=== PATIENT | female | born 1995 | race Caucasian/White ===

== ENCOUNTER 2019-05-16 08:41 | Emergency (ER) | payer OTHER ==
[~2019-05-16] VITALS: Ht 157.5 cm; Wt 63.5 kg
--- NOTE | 2019-05-16 08:58 | NUR ---
ED Nurse Note: PT WA;KE DIN DUE OT VOMITING X 3 DAYS. PT ADMITS SHE IS HAVING A RELAPSE FOR DRUGS. PT TOOK FENTANYL THIS MORNING AND MARIJUANA YESTERDAY. ALOS STATES THAT SHE IS CONSTIPATED, LAST BM 3 DAYS AGO. AAO X4, AMBULATORY, ABDOMEN SOFT AND BOWEL SOUNDS HEARD IN ALL QUADRANTS.
[2019-05-16 09:00] VITALS: BP 122/80
--- NOTE | 2019-05-16 09:12 | Emergency Room Report ---
History of Present Illness General Chief Complaint: Vomiting Source: Patient Present Illness HPI Patient is a 23-year-old female presented after increased nausea and vomiting for several days. Patient reports having recently used fentanyl as well as methamphetamine. She reports having increased anxiety as well as vomiting. Patient previously been sober and then relapsed. She states that she has been using for the past 5 days. She reports having previous episodes of vomiting every time she would use opiates in the past. She denies any fever. She denies any diarrhea she states that she has been constipated. Patient states that last use was today. She denies being . Allergies: Coded Allergies: No Known Allergies (Unverified , 05/16/19) Patient History Past Medical History: see triage record Last Menstrual Period: 05/08/19 Reviewed Nursing Documentation: PMH: Agreed; PSxH: Agreed Nursing Documentation-PMH Past Medical History: No History, Except For Review of Systems All Other Systems: negative except mentioned in HPI Physical Exam Vital Signs Date Time Temp Pulse Resp B/P (MAP) Pulse Ox O2 Delivery O2 Flow Rate FiO2 05/16/19 08:48 98.1 72 18 118/85 (96) 98 Room Air Sp02 EP Interpretation: reviewed, normal General Appearance: normal inspection, well appearing, no apparent distress, alert, GCS 15, non-toxic Head: atraumatic ENT: normal ENT inspection, hearing grossly normal, normal voice, other - nasal vesicular lesion Neck: normal inspection, full range of motion, supple, no bony tend Respiratory: normal inspection, lungs clear, normal breath sounds, no respiratory distress, no retraction, no wheezing Cardiovascular #1: regular rate, rhythm, no edema Gastrointestinal: normal inspection, normal bowel sounds, non tender, soft, no guarding, no hernia Genitourinary: no CVA tenderness Musculoskeletal: normal inspection, back normal, normal range of motion Neurologic: normal inspection, alert, responsive, speech normal Psychiatric: normal inspection, judgement/insight normal, mood/affect normal Medical Decision Making Diagnostic Impression: Primary Impression: Vomiting Additional Impression: Opiate abuse, episodic ER Course Patient presented for nausea and vomiting. Differential diagnosis include was not limited to gastroneuritis, dehydration, bowel obstruction among others. Laboratory testing was ordered due to patient's reported multiple episodes of vomiting. Patient was noted to have reported similar symptoms with opiate use in the past. Patient was given IV fluids as well as nausea medications. Patient was noted to have some improvement. She did not show any evidence of peritonitis. test was negative. She appears to be stable for discharge. Patient was advised to follow up with primary care physician. Patient to return if worse or any concerns. Labs Test 05/16/19 09:00 White Blood Count 6.2 K/UL (4.8-10.8) Red Blood Count 4.90 M/UL (4.20-5.40) Hemoglobin 14.7 G/DL (12.0-16.0) Hematocrit 44.3 % (37.0-47.0) Mean Corpuscular Volume 90 FL (80-99) Mean Corpuscular Hemoglobin 30.0 PG (27.0-31.0) Mean Corpuscular Hemoglobin Concent 33.2 G/DL (32.0-36.0) Red Cell Distribution Width 11.3 % (11.6-14.8) Platelet Count 266 K/UL (150-450) Mean Platelet Volume 7.2 FL (6.5-10.1) Neutrophils (%) (Auto) 45.8 % (45.0-75.0) Lymphocytes (%) (Auto) 37.7 % (20.0-45.0) Monocytes (%) (Auto) 13.1 % (1.0-10.0) Eosinophils (%) (Auto) 2.3 % (0.0-3.0) Basophils (%) (Auto) 1.2 % (0.0-2.0) Urine Color Brown Urine Appearance Slightly cloudy Urine pH 5 (4.5-8.0) Urine Specific [place] 1.025 (1.005-1.035) Urine Protein 2+ (NEGATIVE) Urine Glucose (UA) Negative (NEGATIVE) Urine Ketones 2+ (NEGATIVE) Urine Blood 4+ (NEGATIVE) Urine Nitrite Negative (NEGATIVE) Urine Bilirubin 1+ (NEGATIVE) Urine Ictotest Negative (NEGATIVE) Urine Urobilinogen 1 MG/DL (0.0-1.0) Urine Leukocyte Esterase 1+ (NEGATIVE) Urine RBC 2-4 /HPF (0 - 2) Urine WBC 0-2 /HPF (0 - 2) Urine Squamous Epithelial Cells Few /LPF (NONE/OCC) Urine Calcium Oxalate Crystals Few /LPF (NONE) Urine Bacteria Few /HPF (NONE) Urine Hyaline Casts 5-10 /LPF (NONE) Urine Fine Granular Casts 2-4 /LPF (NONE) Urine Mucus Moderate /LPF (NONE/OCC) Urine HCG, Qualitative Negative (NEGATIVE) Sodium Level 140 MMOL/L (136-145) Potassium Level 3.3 MMOL/L (3.5-5.1) Chloride Level 100 MMOL/L (98-107) Carbon Dioxide Level 34 MMOL/L (21-32) Anion Gap 6 mmol/L (5-15) Blood Urea Nitrogen 10 mg/dL (7-18) Creatinine 0.7 MG/DL (0.55-1.30) Estimat Glomerular Filtration Rate > 60 mL/min (>60) Glucose Level 98 MG/DL (74-106) Calcium Level 9.6 MG/DL (8.5-10.1) Total Bilirubin 0.5 MG/DL (0.2-1.0) Aspartate Amino Transf (AST/SGOT) 25 U/L (15-37) Alanine Aminotransferase (ALT/SGPT) 28 U/L (12-78) Alkaline Phosphatase 58 U/L (46-116) Total Protein 7.8 G/DL (6.4-8.2) Albumin 4.1 G/DL (3.4-5.0) Globulin 3.7 g/dL Albumin/Globulin Ratio 1.1 (1.0-2.7) Lipase 68 U/L (73-393) Last Vital Signs Date Time Temp Pulse Resp B/P (MAP) Pulse Ox O2 Delivery O2 Flow Rate FiO2 05/16/19 08:48 98.1 72 18 118/85 (96) 98 Room Air Status: improved Disposition: HOME, SELF-CARE Scripts Cephalexin* (KEFLEX*) 500 Mg Capsule 500 MG ORAL EVERY 6 HOURS, #28 CAP Prov: Gareth Rosa MD 05/16/19 Ondansetron Odt* (ZOFRAN ODT*) 4 Mg Tab.rapdis 4 MG BC EVERY 8 HOURS, #10 TAB 0 Refills Prov: Gareth Rosa MD 05/16/19 Gareth Rosa MD May 16, 2019 09:12
--- NOTE | 2019-05-16 09:15 | NUR ---
ED Nurse Note: BLOOD/URINE SENT.
[2019-05-16 09:21] LABS: APPEARANCE,URINE SLIGHTLY CLOUDY; BILIRUBIN, URINE 1+ (NEGATIVE); COLOR,URINE BROWN; GLUCOSE, URINE (UA) NEGATIVE (NEGATIVE); KETONES,URINE 2+ (NEGATIVE); LEUKOCYTE ESTERASE ,URINE 1+ (NEGATIVE); NITRITE,URINE NEGATIVE (NEGATIVE); PH,URINE 5 (4.5-8.0); PROTEIN,URINE 2+ (NEGATIVE); UROBILINOGEN,URINE 1 MG/DL (0.0-1.0)
[2019-05-16 09:22] LABS: BASOPHILS % (AUTO) 1.2 % (0.0-2.0); EOSINOPHILS % (AUTO) 2.3 % (0.0-3.0); HEMATOCRIT 44.3 % (37.0-47.0); HEMOGLOBIN 14.7 G/DL (12.0-16.0); LYMPHOCYTES % (AUTO) 37.7 % (20.0-45.0); MEAN CORPUSCULAR VOLUME 90 FL (80-99); MONOCYTES % (AUTO) 13.1 % (1.0-10.0); NEUTROPHILS % (AUTO) 45.8 % (45.0-75.0); PLATELET COUNT 266 K/UL (150-450); RED CELL DISTRIBUTION WIDTH 11.3 % (11.6-14.8); WHITE BLOOD COUNT 6.2 K/UL (4.8-10.8)
[2019-05-16 09:31] LABS: ANION GAP 6 mmol/L (5-15); BLOOD UREA NITROGEN 10 mg/dL (7-18); CALCIUM 9.6 MG/DL (8.5-10.1); CARBON DIOXIDE 34 MMOL/L (21-32); CHLORIDE 100 MMOL/L (98-107); CREATININE 0.7 MG/DL (0.55-1.30); POTASSIUM 3.3 MMOL/L (3.5-5.1); SODIUM 140 MMOL/L (136-145)
[2019-05-16 09:35] LABS: ALANINE AMINOTRANSFERASE 28 U/L (12-78); ALBUMIN 4.1 G/DL (3.4-5.0); ALBUMIN/GLOBULIN RATIO 1.1 (1.0-2.7); ALKALINE PHOSPHATASE 58 U/L (46-116); ASPARTATE AMINO TRANSFERASE 25 U/L (15-37); BILIRUBIN,TOTAL 0.5 MG/DL (0.2-1.0)
[2019-05-16] MEDS ORDERED: cefTRIAXone 1 GM in NS 55 ML IVPB ONE (10:15)
[2019-05-16] MEDS ORDERED: CEPHALEXIN500 MG ORAL (10:16)
[2019-05-16] MEDS ORDERED: ONDANSETRON ODT4 MG BC (10:16)
[2019-05-16] MEDS ORDERED: NKM (10:19)
[2019-05-16 11:02] VITALS: BP 125/77
[2019-05-16 11:31] VITALS: BP 125/77
--- NOTE | 2019-05-16 11:31 | NUR ---
ER DISCHARGE NOTE: Patient is cleared to be discharged per ERMD, pt is aox4, on room air, with stable vital signs. pt was given dc and prescription instructions, pt was able to verbalize understanding, pt id band and iv site removed without complications. pt is able to ambulate with steady gait. pt took all belongings and left with her girlfriend.
== END 2019-05-16 11:31 | disposition home or self-care (01) ==
LOC: EMR 09:11
DX: R11.10 Vomiting, unspecified (principal); F11.10 Opioid abuse, uncomplicated; K59.00 Constipation, unspecified
CPT/HCPCS: 36415; 80053; 81003; 81025; 83690; 85025; 96361; 96365; 96375; 99284; J0696; J2405

== ENCOUNTER 2019-05-18 01:48 | Emergency (ER) | payer OTHER ==
[2019-05-18] VITALS (10 sets, daily range): BP systolic 103–119; BP diastolic 60–86
[~2019-05-18] VITALS: Ht 167.6 cm; Wt 68.0 kg
[~2019-05-18 01:48] MED LIST: CEPHALEXIN500 MG ORAL; NKM; ONDANSETRON ODT4 MG BC
--- NOTE | 2019-05-18 01:50 | NUR ---
ED Nurse Note: Pt BIBA from home, c/o s/p od on fentanyl drug, pt was given narcan D[employer]ER [employer] CHOREOGR[employer]HER and awakened, pt is very combative and restless, agitated, yelling and screaming, requiring about 5 staff to control pt, pt also spitting at everyone, hallucinating and growling, pt constantly moving, unable to obtain triage v/s or any v/s, md aware and at bedside, will medicate pt to calm then get v/s and labs per md, pt placed in restraints for safety, will continue to closely monitor.
[2019-05-18] MEDS ORDERED: DiphenhydrAMINE 50mg/ml Inj IM ONE (02:00)
[2019-05-18] MEDS ORDERED: LORazepam Inj 2mg/ml 1ml IM ONE ×2 (02:00→03:00)
[2019-05-18] MEDS ORDERED: Haloperidol 5mg/ml Inj IM ONE ×2 (02:00→03:00)
--- NOTE | 2019-05-18 03:30 | NUR ---
ED Nurse Note: Pt medicated as ordered, meds not effective, pt continues to elicit extreme aggressive behaviors with yelling and shouting and growling, pt is combative, pinching and scratching and kicking, pt is constantly moving, requiring very frequent attempts to re-orient and re-place restraints as pt released self x 2 from right arm, unable still to obtain v/s or blood, md is aware, pt re-medicated second time, waiting for med effectiveness to re-attempt labs and v/s, pt remains on continuous and every 15 minutes assessing.
[2019-05-18 04:11] LABS: BASOPHILS % (AUTO) 0.8 % (0.0-2.0); EOSINOPHILS % (AUTO) 0.6 % (0.0-3.0); HEMATOCRIT 43.6 % (37.0-47.0); HEMOGLOBIN 15.1 G/DL (12.0-16.0); LYMPHOCYTES % (AUTO) 16.4 % (20.0-45.0); MEAN CORPUSCULAR VOLUME 88 FL (80-99); MONOCYTES % (AUTO) 10.1 % (1.0-10.0); NEUTROPHILS % (AUTO) 72.1 % (45.0-75.0); PLATELET COUNT 306 K/UL (150-450); RED BLOOD COUNT 4.97 M/UL (4.20-5.40); RED CELL DISTRIBUTION WIDTH 11.2 % (11.6-14.8); WHITE BLOOD COUNT 13.1 K/UL (4.8-10.8)
[2019-05-18 04:16] LABS: ANION GAP 14 mmol/L (5-15); BLOOD UREA NITROGEN 12 mg/dL (7-18); CALCIUM 10.1 MG/DL (8.5-10.1); CARBON DIOXIDE 25 MMOL/L (21-32); CHLORIDE 102 MMOL/L (98-107); POTASSIUM 3.4 MMOL/L (3.5-5.1); SODIUM 141 MMOL/L (136-145)
[2019-05-18 04:20] LABS: ALANINE AMINOTRANSFERASE 29 U/L (12-78); ALBUMIN 4.4 G/DL (3.4-5.0); ALBUMIN/GLOBULIN RATIO 1.3 (1.0-2.7); ALKALINE PHOSPHATASE 61 U/L (46-116); ASPARTATE AMINO TRANSFERASE 38 U/L (15-37); BILIRUBIN,TOTAL 0.6 MG/DL (0.2-1.0)
--- NOTE | 2019-05-18 04:30 | NUR ---
ER Nurse Note: Pt continues to be in four point hard restraints; not ready to be removed. Pt thrashing in bed. Unable to assess mental status, agitated, restless. Skin assessed; no skin breakdown. Unable to get v/s after several attempts; temp 99.1F axillary. All safety measures met; will continue to montior.
--- NOTE | 2019-05-18 06:10 | NUR ---
ER Nurse Note: Restraint order renewed. Skin intact. Pt continues to be AMS and DTS. VSS, stable. Friend at bedside. All safety measures met; will continue to monitor.
--- NOTE | 2019-05-18 07:22 | NUR ---
ER Nurse Note: Urine sent collected and sent; awaiting results. Pt calm, hard restraints removed and documented. Pt asleep, VSS, no signs of distress. Report given to GINA Pinzon for continuty of care.
[2019-05-18 07:24] LABS: APPEARANCE,URINE CLEAR; BILIRUBIN, URINE NEGATIVE (NEGATIVE); GLUCOSE, URINE (UA) NEGATIVE (NEGATIVE); KETONES,URINE 4+ (NEGATIVE); LEUKOCYTE ESTERASE ,URINE NEGATIVE (NEGATIVE); NITRITE,URINE NEGATIVE (NEGATIVE); PH,URINE 6 (4.5-8.0); PROTEIN,URINE 1+ (NEGATIVE); UROBILINOGEN,URINE 1 MG/DL (0.0-1.0)
--- NOTE | 2019-05-18 07:25 | NUR ---
ED Nurse Note: Pt sleeping in bed comfortably at this time. No sign of distress. Partner at bedside. IV 20G on R forearm was established prior to AM shift and flushed well, using for future medications.
[2019-05-18 07:46] LABS: COLOR,URINE YELLOW
--- NOTE | 2019-05-18 08:07 | Emergency Room Report ---
Physical Exam Vital Signs Date Time Temp Pulse Resp B/P (MAP) Pulse Ox O2 Delivery O2 Flow Rate FiO2 05/18/19 01:48 100.2 114 22 105/67 (80) 100 Room Air Sp02 EP Interpretation: reviewed, normal General Appearance: non-toxic, other - Sleeping Head: normocephalic, atraumatic Eyes: bilateral eye PERRL, bilateral eye EOMI ENT: uvula midline, dry mucus membranes Neck: supple, thyroid normal, supple/symm/no masses Respiratory: lungs clear, no respiratory distress, no retraction, no accessory muscle use Cardiovascular #1: normal peripheral pulses, regular rate, rhythm, no edema, no gallop, no murmur Gastrointestinal: non tender, soft, no guarding, no rebound Musculoskeletal: normal inspection Neurologic: responsive Skin: no rash, warm/dry Medical Decision Making Diagnostic Impression: Primary Impression: Drug overdose ER Course 23-year-old female history of polysubstance abuse presents with overdose on GHB and fentanyl, patient is sleeping, responsive with sluggish pupils, patient wakes up when aroused, she becomes a little combative, requiring restraints, she is calm down with over 5 hours of observation significantly improved, we will continue to observe, until patient jessica completely. Patient is given 2 L of NS, labs are reviewed, with marijuana in the urine as well as amphetamines. Reevaluation 9:54 AM, patient is walking, ambulatory, back to baseline, will disposition patient home with return precautions will be accompanied by her partner at home Laboratory Tests Test 05/18/19 03:53 05/18/19 07:10 White Blood Count 13.1 K/UL (4.8-10.8) H Red Blood Count 4.97 M/UL (4.20-5.40) Hemoglobin 15.1 G/DL (12.0-16.0) Hematocrit 43.6 % (37.0-47.0) Mean Corpuscular Volume 88 FL (80-99) Mean Corpuscular Hemoglobin 30.4 PG (27.0-31.0) Mean Corpuscular Hemoglobin Concent 34.7 G/DL (32.0-36.0) Red Cell Distribution Width 11.2 % (11.6-14.8) L Platelet Count 306 K/UL (150-450) Mean Platelet Volume 7.5 FL (6.5-10.1) Neutrophils (%) (Auto) 72.1 % (45.0-75.0) Lymphocytes (%) (Auto) 16.4 % (20.0-45.0) L Monocytes (%) (Auto) 10.1 % (1.0-10.0) H Eosinophils (%) (Auto) 0.6 % (0.0-3.0) Basophils (%) (Auto) 0.8 % (0.0-2.0) Sodium Level 141 MMOL/L (136-145) Potassium Level 3.4 MMOL/L (3.5-5.1) L Chloride Level 102 MMOL/L (98-107) Carbon Dioxide Level 25 MMOL/L (21-32) Anion Gap 14 mmol/L (5-15) Blood Urea Nitrogen 12 mg/dL (7-18) Creatinine 1.0 MG/DL (0.55-1.30) Estimate Glomerular Filtration Rate > 60 mL/min (>60) Glucose Level 109 MG/DL (74-106) H Calcium Level 10.1 MG/DL (8.5-10.1) Total Bilirubin 0.6 MG/DL (0.2-1.0) Aspartate Amino Transferase (AST) 38 U/L (15-37) H Alanine Aminotransferase (ALT) 29 U/L (12-78) Alkaline Phosphatase 61 U/L (46-116) Total Protein 7.9 G/DL (6.4-8.2) Albumin 4.4 G/DL (3.4-5.0) Globulin 3.5 g/dL Albumin/Globulin Ratio 1.3 (1.0-2.7) Salicylates Level 1.5 ug/mL (2.8-20) L Acetaminophen Level < 2 MCG/ML (10-30) L Serum Alcohol < 3 mg/dL Urine Color Yellow Urine Appearance Clear Urine pH 6 (4.5-8.0) Urine Specific [place] 1.030 (1.005-1.035) Urine Protein 1+ (NEGATIVE) H Urine Glucose (UA) Negative (NEGATIVE) Urine Ketones 4+ (NEGATIVE) H Urine Blood 2+ (NEGATIVE) H Urine Nitrite Negative (NEGATIVE) Urine Bilirubin Negative (NEGATIVE) Urine Urobilinogen 1 MG/DL (0.0-1.0) H Urine Leukocyte Esterase Negative (NEGATIVE) Urine RBC 5-10 /HPF (0 - 2) H Urine WBC 0-2 /HPF (0 - 2) Urine Squamous Epithelial Cells Moderate /LPF (NONE/OCC) H Urine Bacteria Few /HPF (NONE) Urine Mucus Moderate /LPF (NONE/OCC) H Urine HCG, Qualitative Negative (NEGATIVE) Urine Opiates Screen Negative (NEGATIVE) Urine Barbiturates Screen Negative (NEGATIVE) Phencyclidine (PCP) Screen Negative (NEGATIVE) Urine Amphetamines Screen Positive (NEGATIVE) H Urine Benzodiazepines Screen Positive (NEGATIVE) H Urine Cocaine Screen Negative (NEGATIVE) Urine Marijuana (THC) Screen Positive (NEGATIVE) H Last Vital Signs Date Time Temp Pulse Resp B/P (MAP) Pulse Ox O2 Delivery O2 Flow Rate FiO2 05/18/19 07:25 100 21 98 Room Air 05/18/19 07:00 98.4 119/86 Disposition: HOME, SELF-CARE Condition: Stable Referrals: NOT CHOSEN IPA/,REFERRING (PCP) [facility] Patient Instructions: Drug Overdose, Narcotic Overdose Additional Instructions: The patient was provided with discharge instructions, notified to follow-up with a primary care doctor and or specialist in the next 24-48 hours, and to return to the ED if they have worsening of their symptoms. Please note that this report is being documented using [employer] technology. This can lead to erroneous entry secondary to incorrect interpretation by the dictating instrument. Denys Agarwal MD May 18, 2019 08:07
--- NOTE | 2019-05-18 08:11 | NUR ---
ED Nurse Note: Amaya-partner left contact: [phone]
--- NOTE | 2019-05-18 10:12 | NUR ---
ED Nurse Note: Pt sleeping in bed comfortably, no sign of acute distress. Lung sounds clear.
--- NOTE | 2019-05-18 13:15 | NUR ---
ED Nurse Note: RN attempted to wake pt up but she fell back to sleep right away. Partner at bedside with patient.
[2019-05-18] MEDS ORDERED: Ammonia Inhalant 0.33mL 1 Amp INH ONE ×2 (14:35→15:45)
--- NOTE | 2019-05-18 15:29 | Diagnostic Imaging Report ---
Indications: Altered mental status Technique: Spiral acquisitions obtained through the brain. Angled axial and coronal 5 x 5 mm slices were reconstructed. Total dose length product 1340.9 mGycm. CTDI vol(s) 70.38 mGy. Dose reduction achieved using automated exposure control Comparison: None. Findings: No acute intracranial hemorrhage or edema. No mass effect or midline shift. Normal size ventricles and extra axial CSF spaces. Normal pollard-white differentiation. Intact calvarium. Visualized orbits and sinuses are unremarkable. The mastoids are clear. Impression: Negative The CT scanner at [facility] is accredited by the [employer] and the scans are performed using protocols designed to limit radiation exposure to as low as reasonably achievable to attain images of sufficient resolution adequate for diagnostic evaluation.
--- NOTE | 2019-05-18 17:07 | NUR ---
ED Nurse Note: Pt is still sleep on bed comfortably, lung sounds clear. Partner stated pt woke up and talked on the phone with her family then went back to sleep.
--- NOTE | 2019-05-18 18:07 | NUR ---
ED Nurse Note: Pt woke up and walked to the bathroom with steady gait.
--- NOTE | 2019-05-18 18:14 | NUR ---
ER DISCHARGE NOTE: Patient is cleared to be discharged per ERMD, pt is aox4, on room air, with stable vital signs. pt was given dc and prescription instructions, pt was able to verbalize understanding, pt id band and iv site removed without complications. pt is able to ambulate with steady gait. pt took all belongings.
--- NOTE | 2019-05-20 21:24 | Emergency Room Report ---
History of Present Illness General Chief Complaint: Overdose Source: Significant Other, EMS Present Illness HPI 23-year-old female presents ED for evaluation. Brought in by EMS from home for reported overdose. Witnessed reported patient use fentanyl. Was given Narcan by EMS and is now more awake. Significant other at bedside states that patient does have a history of substance abuse. Denies SI or HI. Patient unable to provide any additional history at this time. Is agitated and combative however not answering questions. No other aggravating relieving factors. No other associated symptoms Allergies: Coded Allergies: No Known Allergies (Unverified , 05/16/19) Patient History Past Medical History: none Past Surgical History: none Pertinent Family History: none Social History: Reports: drug use; Denies: smoking, alcohol use Now: No Immunizations: UTD Reviewed Nursing Documentation: PMH: Agreed; PSxH: Agreed Nursing Documentation-PMH Past Medical History: No History, Except For Review of Systems All Other Systems: limited Physical Exam Vital Signs Date Time Temp Pulse Resp B/P (MAP) Pulse Ox O2 Delivery O2 Flow Rate FiO2 05/18/19 01:48 100.2 114 22 105/67 (80) 100 Room Air Sp02 EP Interpretation: reviewed, normal General Appearance: lethargic, other - agitated/combative Head: normocephalic Eyes: bilateral eye normal inspection, bilateral eye PERRL ENT: normal ENT inspection Neck: normal inspection Respiratory: chest non-tender, lungs clear, normal breath sounds, speaking full sentences Cardiovascular #1: regular rate, rhythm, no edema Gastrointestinal: normal bowel sounds, non tender, soft, non-distended, no guarding, no rebound Rectal: deferred Genitourinary: no CVA tenderness Musculoskeletal: back normal Neurologic: other - agitated/combative Psychiatric: other - agitated/combative Skin: no rash Lymphatic: normal inspection Medical Decision Making Restraint Attestation I, Efraín Alfred MD, have personally evaluated this patient. Laboratory tests have been reviewed and addressed accordingly. The patient is deemed to present a danger to themselves and/or others. This is based on the exam, history (provided by patient, EMS/[employer] and/or family) and observed or reported behavior. Attempts for non-invasive measures have been considered and/or attempted, however, have been futile. It is in the best interest of the nursing staff, the patient, and others involved in this patient's care that behavioral restraints be applied. Patient evaluation reveals the following: On reassessment of the patient, the patient will continue to require restraints for the safety of the patient, the nursing staff and others involved in the care of this patient. Diagnostic Impression: Primary Impression: Drug overdose Qualified Codes: T50.901A - Poisoning by unspecified drugs, medicaments and biological substances, accidental (unintentional), initial encounter ER Course Hospital Course 23-year-old F presents to ED with altered mental status. s/p overdose on fentanyl Differential diagnoses include: Psychosis, EtOH, drug abuse Clinical course patient placed on stretcher. On quality assurance monitor chassis. After initial history and physical ordered labs, IV fluids Patient very combative and agitated. Unable to calm patient. Will require sedation for her protection. Given Haldol/Ativan/Benadryl. Restraints applied Labs reviewed- electrolytes okay, minimal leukocytosis, hemoglobin/hematocrit stable, tox panel + for multilple substances Required additional sedation medications. Currently in restraints for her protection. Significant other at bedside. Vitals stable. i. I feel this is a highly complex case requiring extensive working including EKG/Rhythm strip, Xray/CT/US, Blood/urine lab work, repeat exams while in ED, and administration of strong opiates/narcotics for pain control, admission to hospital or close patient follow up. signed out to Dr Agarwal pending reassessment upon sobriety Labs Test 05/18/19 03:53 05/18/19 07:10 White Blood Count 13.1 K/UL (4.8-10.8) Red Blood Count 4.97 M/UL (4.20-5.40) Hemoglobin 15.1 G/DL (12.0-16.0) Hematocrit 43.6 % (37.0-47.0) Mean Corpuscular Volume 88 FL (80-99) Mean Corpuscular Hemoglobin 30.4 PG (27.0-31.0) Mean Corpuscular Hemoglobin Concent 34.7 G/DL (32.0-36.0) Red Cell Distribution Width 11.2 % (11.6-14.8) Platelet Count 306 K/UL (150-450) Mean Platelet Volume 7.5 FL (6.5-10.1) Neutrophils (%) (Auto) 72.1 % (45.0-75.0) Lymphocytes (%) (Auto) 16.4 % (20.0-45.0) Monocytes (%) (Auto) 10.1 % (1.0-10.0) Eosinophils (%) (Auto) 0.6 % (0.0-3.0) Basophils (%) (Auto) 0.8 % (0.0-2.0) Sodium Level 141 MMOL/L (136-145) Potassium Level 3.4 MMOL/L (3.5-5.1) Chloride Level 102 MMOL/L (98-107) Carbon Dioxide Level 25 MMOL/L (21-32) Anion Gap 14 mmol/L (5-15) Blood Urea Nitrogen 12 mg/dL (7-18) Creatinine 1.0 MG/DL (0.55-1.30) Estimat Glomerular Filtration Rate > 60 mL/min (>60) Glucose Level 109 MG/DL (74-106) Calcium Level 10.1 MG/DL (8.5-10.1) Total Bilirubin 0.6 MG/DL (0.2-1.0) Aspartate Amino Transf (AST/SGOT) 38 U/L (15-37) Alanine Aminotransferase (ALT/SGPT) 29 U/L (12-78) Alkaline Phosphatase 61 U/L (46-116) Total Protein 7.9 G/DL (6.4-8.2) Albumin 4.4 G/DL (3.4-5.0) Globulin 3.5 g/dL Albumin/Globulin Ratio 1.3 (1.0-2.7) Salicylates Level 1.5 ug/mL (2.8-20) Acetaminophen Level < 2 MCG/ML (10-30) Serum Alcohol < 3 mg/dL Urine Color Yellow Urine Appearance Clear Urine pH 6 (4.5-8.0) Urine Specific [place] 1.030 (1.005-1.035) Urine Protein 1+ (NEGATIVE) Urine Glucose (UA) Negative (NEGATIVE) Urine Ketones 4+ (NEGATIVE) Urine Blood 2+ (NEGATIVE) Urine Nitrite Negative (NEGATIVE) Urine Bilirubin Negative (NEGATIVE) Urine Urobilinogen 1 MG/DL (0.0-1.0) Urine Leukocyte Esterase Negative (NEGATIVE) Urine RBC 5-10 /HPF (0 - 2) Urine WBC 0-2 /HPF (0 - 2) Urine Squamous Epithelial Cells Moderate /LPF (NONE/OCC) Urine Bacteria Few /HPF (NONE) Urine Mucus Moderate /LPF (NONE/OCC) Urine HCG, Qualitative Negative (NEGATIVE) Urine Opiates Screen Negative (NEGATIVE) Urine Barbiturates Screen Negative (NEGATIVE) Phencyclidine (PCP) Screen Negative (NEGATIVE) Urine Amphetamines Screen Positive (NEGATIVE) Urine Benzodiazepines Screen Positive (NEGATIVE) Urine Cocaine Screen Negative (NEGATIVE) Urine Marijuana (THC) Screen Positive (NEGATIVE) Last Vital Signs Date Time Temp Pulse Resp B/P (MAP) Pulse Ox O2 Delivery O2 Flow Rate FiO2 05/18/19 18:14 98.4 84 20 114/86 100 Room Air Status: improved Disposition: HOME, SELF-CARE Condition: Stable Referrals: NOT CHOSEN IPA/,REFERRING (PCP) [facility] Patient Instructions: Drug Overdose, Narcotic Overdose Additional Instructions: The patient was provided with discharge instructions, notified to follow-up with a primary care doctor and or specialist in the next 24-48 hours, and to return to the ED if they have worsening of their symptoms. Please note that this report is being documented using [employer] technology. This can lead to erroneous entry secondary to incorrect interpretation by the dictating instrument. Efraín Alfred MD May 20, 2019 21:24
== END 2019-05-18 18:14 | disposition home or self-care (01) ==
LOC: EDBD 01:48 → EMR 02:20
DX: T40.4X1A Poisoning by other synthetic narcotics, accidental (unintentional), initial encounter (principal)
CPT/HCPCS: 36415; 70450; 80053; 80307; 81003; 81025; 85025; 96360; 96361; 96372; 99284; G0480; J1200; J1630; 80329